=== PATIENT | female | born 1935 | race Native Hawaiian/Other Pacific Islander ===

== ENCOUNTER 2016-10-08 12:38 | Outpatient (CLI) | payer OTHER ==
[2016-10-08 13:33] LABS: PLATELET COUNT 200 K/uL (152-353)
[2016-10-08 14:19] LABS: POTASSIUM 4.5 mmol/L (3.6-5.2)
== END 2016-10-08 19:44 | disposition home or self-care (01) ==
LOC: LAB 12:38
PROVIDERS: Nurse Practitioner Family
DX: J44.9 Chronic obstructive pulmonary disease, unspecified (principal); E78.00 Pure hypercholesterolemia, unspecified; I10 Essential (primary) hypertension; E03.8 Other specified hypothyroidism; Z79.899 Other long term (current) drug therapy; Z51.81 Encounter for therapeutic drug level monitoring
CPT/HCPCS: 80053; 80061; 83036; 84439; 84443; 85027

== ENCOUNTER 2017-10-29 12:03 | Outpatient (CLI) | payer OTHER ==
[2017-10-29 12:49] LABS: PLATELET COUNT 286 K/uL (152-353)
[2017-10-29 12:57] LABS: POTASSIUM 4.4 mmol/L (3.6-5.2)
== END 2017-10-29 18:13 | disposition home or self-care (01) ==
LOC: CT 12:03
PROVIDERS: Nurse Practitioner
DX: R41.82 Altered mental status, unspecified (principal); R05 Cough
CPT/HCPCS: 36415; 80053; 85027

== ENCOUNTER 2018-04-29 09:15 | Inpatient (IN) | payer OTHER ==
[~2018-04-29] VITALS: Ht 167.6 cm; Wt 108.0 kg
[2018-04-29 13:55] VITALS: BP 147/67; TEMP 97.8; Ht 167.6 cm; Wt 108.0 kg
[2018-04-30 08:00] VITALS: BP 150/61; TEMP 97.9
== END 2018-04-30 11:21 | disposition home or self-care (01) | DRG 684 ==
LOC: MED/SURG 09:15
DX: N18.6 End stage renal disease (principal)

== ENCOUNTER 2018-05-05 08:54 | Outpatient (CLI) | payer OTHER ==
[2018-05-05 09:32] LABS: POTASSIUM 4.3 mmol/L (3.6-5.2)
== END 2018-05-05 23:00 | disposition home or self-care (01) ==
LOC: LABW 08:54
DX: N18.9 Chronic kidney disease, unspecified (principal)
CPT/HCPCS: 36415; 80053